=== PATIENT | male | born 1995 | race African-American/Black ===

== ENCOUNTER 2018-11-07 06:23 | Emergency (ER) | payer OTHER | END 2018-11-07 08:51 | disposition home or self-care (01) | LOC: JER 06:23 ==

== ENCOUNTER 2022-08-01 16:11 | Emergency (ER) | payer OTHER ==
[2022-08-01 16:22] VITALS: BP 150/82; PULSE 71; RESP 17; TEMP 98.8; BMI 23.0
[2022-08-01] MEDS ORDERED: IBUPROFEN 600 MG TABLET (FP) PO ONE ×2 (17:02→17:05)
[2022-08-01 17:53] LABS: BASO % 0.8 % (0-2.0); EOS % 2.6 % (0-4.5); HEMATOCRIT 43.4 % (35.4-49); HEMOGLOBIN 14.4 GM/dL (11.7-16.9); LYMPH % 34.1 % (8-40); MCH 28.6 pg (25.7-33.7); MCHC 33.2 g/dl (32.0-35.9); MEAN CELL VOLUME 86.2 fl (80-96); MEAN PLT VOLUME 8.6 fl (7.5-11.1); MONO % 7.3 % (3.8-10.2); NEUT % 55.2 % (42.8-82.8); PLATELET COUNT 292 10^3/uL (134-434); RBC 5.04 M/mm3 (4.00-5.60); RDW 12.2 % (11.9-15.9); WHITE BLOOD COUNT 6.7 K/mm3 (4.0-10.0)
[2022-08-01 18:05] LABS: INR 1.07 (0.83-1.09); PROTHROMBIN TIME (PATIENT) 12.4 SEC (9.7-13.0)
[2022-08-01 18:08] LABS: ACTIVATED PTT 31.8 SECONDS (25.2-36.5)
[2022-08-01 18:15] LABS: CALCIUM 9.7 mg/dL (8.5-10.1)
[2022-08-01 18:16] LABS: ALBUMIN 4.1 g/dl (3.4-5.0); BLOOD UREA NITROGEN 15.1 mg/dL (7-18); MAGNESIUM 2.1 mg/dL (1.8-2.4)
[2022-08-01 18:19] LABS: CREATININE 0.9 mg/dL (0.55-1.3)
[2022-08-01 18:20] LABS: BILIRUBIN,TOTAL 0.6 mg/dL (0.2-1); TOT PROT 8.2 g/dl (6.4-8.2)
== END 2022-08-01 19:09 | disposition home or self-care (01) ==
LOC: JERFT 16:11
DX: I30.8 Other forms of acute pericarditis (principal); R07.89 Other chest pain
CPT/HCPCS: 36415; 71046-TC-FY; 80053; 83735; 84484; 85025; 85379; 85610; 85730; 93005; 93010; 99285-25